=== PATIENT | female | born 1985 | race Caucasian/White ===

== ENCOUNTER 2021-03-10 12:13 | Emergency (ER) | payer MEDICAID, SELFPAY ==
--- NOTE | ~2021-03-10 | XR_ITS ---
EXAMINATION: 1. Radiographs lumbar spine 2. Radiographs right wrist CLINICAL INFORMATION: Pain after fall COMPARISON: None TECHNIQUE: 4 views of the right wrist and 3 views of the lumbar spine were obtained. FINDINGS: Right wrist: Visualized portion of the distal radius and ulna demonstrate no fracture. Carpal rows are well-maintained. No carpal bone fracture. No focal soft tissue swelling of the wrist. Visualized metacarpals demonstrate no fracture. Lumbar spine: 5 nonrib-bearing lumbar vertebral bodies are visualized. L5 appears partially sacralized. Normal alignment. Vertebral body heights are maintained. Mildly decreased L4/5 and L5/S1 disc space heights. Sacroiliac joints are symmetric. Punctate pelvic calcifications are likely vascular in nature. XR/XR lumbar spine 2-3V IMPRESSION: 1. Unremarkable radiographs of the right wrist. 2. Minimal degenerative changes of the lower lumbar spine.
--- NOTE | ~2021-03-10 | XR_ITS ---
EXAMINATION: 1. Radiographs lumbar spine 2. Radiographs right wrist CLINICAL INFORMATION: Pain after fall COMPARISON: None TECHNIQUE: 4 views of the right wrist and 3 views of the lumbar spine were obtained. FINDINGS: Right wrist: Visualized portion of the distal radius and ulna demonstrate no fracture. Carpal rows are well-maintained. No carpal bone fracture. No focal soft tissue swelling of the wrist. Visualized metacarpals demonstrate no fracture. Lumbar spine: 5 nonrib-bearing lumbar vertebral bodies are visualized. L5 appears partially sacralized. Normal alignment. Vertebral body heights are maintained. Mildly decreased L4/5 and L5/S1 disc space heights. Sacroiliac joints are symmetric. Punctate pelvic calcifications are likely vascular in nature. XR/XR hand wrist RT IMPRESSION: 1. Unremarkable radiographs of the right wrist. 2. Minimal degenerative changes of the lower lumbar spine.
[2021-03-10 12:23] VITALS: BP 139/99; PULSE 99; RESP 18; TEMP 36.8; O2SAT 97; BMI 23.3
--- NOTE | 2021-03-10 12:40 | ED.FALL ---
HPI - Fall General Chief Complaint: Fall Stated Complaint: rt wrist injury Time Seen by Provider: 03/10/21 12:40 Source: patient Mode of arrival: ambulatory Limitations: no limitations History of Present Illness HPI Narrative: 35 y/o female presenting with right wrist pain after she slipped on wet floor at work Thursday night and fall backwards onto her right hand and buttocks. She wrapped her wrist in an danie wrap but she reports ongoing pain with movement of her wrist and whenever she tries to lift anything heavy. She also reports some lower back and buttock discomfort. History of a fall a few years ago and she fell on the same spot then too. No LE weakness, numbnes or tingling. No incontinence. Gait is normal. MD complaint: fall Onset (ago): day(s) (3) Fall from: standing Fall witnessed: no Place fall occurred: work Loss of consciousness: none Prolonged down time: no Symptoms prior to fall: none Context: tripped/slipped Location of injury: back and buttocks Location of injury - extremities: right: hand Severity: moderate Severity scale (1-10): 6 Quality: aching Associated symptoms (after fall): denies Related Data Allergies Allergy/AdvReac Type Severity Reaction Status Date / Time codeine Allergy Unknown Verified 03/10/21 12:30 Penicillins Allergy Unknown Verified 03/10/21 12:30 ibuprofen AdvReac Nausea Verified 03/10/21 12:30 Review of Systems Review of Systems: Constitutional: No Fever, No Chills Cardiovascular: No Chest Pain, No SOB Respiratory: No Cough, No Sputum Gastrointestinal: No Nausea, No Vomiting, No abdominal Pain Musculoskeletal: + joint pain, + Myalgias Skin: No Skin Lesions, No rash Neuro: No Weakness, No Numbness, No Dizziness, No Headache Heme/Lymph: No Bruising PMFSH Past Medical History Medical History (Updated 03/10/21 @ 14:03 by BJORN Robles) Asthma Depression Social History Social History Advance Directives: Yes Advance Directives Information Provided: Yes Advance Directives on File: No Patient : No Physical Exam Vital Signs: Vital Signs: Last Vital Signs Temp 98.3 F 03/10/21 12:23 Pulse 99 03/10/21 12:23 Resp 18 03/10/21 12:23 BP 139/99 H 03/10/21 12:23 Pulse Ox 97 03/10/21 12:23 Body Mass Index 23.3 Appearance: Alert. Oriented X3. No acute distress. HEENT: normal inspection CVS: Normal heart rate and rhythm. Pulses normal. Respiratory: No respiratory distress. Skin: Skin warm and dry. Normal skin color. Normal skin turgor. No rashes. Extremities: right wrist normal to inspection, tenderness along the dorsal side of distal forearm over distal radius and ulna, 2+ radial pulse, no swelling or ecchymosis. limited wrist ROM due to pain. Normal ROM of fingers, normal hand grasp. Neuro: Oriented X 3. No motor deficit. No sensory deficit. Course Course Course Narrative: 35 yo female presenting with right wrist pain and buttock pain 3 days s/p mechanical fall at work. XR's are negative for traumatic injury. Placed in danie for probable wrist sprain. Stable for d/c home with plan to f/u with her doctor as needed. Discharge Plan Discharge Clinical Impression: Sprain of right wrist Qualifiers: Encounter type: initial encounter Qualified Code(s): S63.501A - Unspecified sprain of right wrist, initial encounter Patient Disposition: Home, Self-Care Instructions: Low Back Strain (ED), Wrist Sprain (ED) Additional Instructions: Your x-rays did not show any acute fractures or abnormalities. Recommend DANIE wrap for support and compression. Use ice several times per day for the next 48 hours. Take Motrin and/or Tylenol as needed for pain. Follow up with your doctor as needed. Stand Alone Forms: Work/School Release Interventions: ED Discharge Assessment Last Done: 03/10/21 14:19 Discharge Date/Time: 03/10/21 14:20
== END 2021-03-10 14:20 | disposition home or self-care (01) ==
PROVIDERS: Emergency Provider Emergency Medicine
DX: S63.501A Unspecified sprain of right wrist, initial encounter (principal); M54.5 Low back pain; W01.0XXA Fall on same level from slipping, tripping and stumbling without subsequent striking against object, initial encounter; Y93.9 Activity, unspecified; Y92.9 Unspecified place or not applicable; Y99.0 Civilian activity done for income or pay
CPT/HCPCS: 72100; 73110; 73130; 99283